=== PATIENT | female | born 1960 | race Caucasian/White ===

== ENCOUNTER 2017-08-09 12:57 | Outpatient (CLI) | payer OTHER, BC ==
--- NOTE | 2017-08-09 14:45 | XRAY Report ---
THREE VIEW BILATERAL ANKLES: 08/09/2017 CLINICAL INDICATION: Pain, swelling. FINDINGS: AP, lateral, oblique views of the bilateral ankles demonstrate no evidence of acute fracture or dislocation. No effusion is present. Mild osteoarthritis is seen. Bilateral plantar and posterior calcaneal spurring is present. IMPRESSION: MILD OSTEOARTHRITIS. NO EVIDENCE OF ACUTE FRACTURE. TD: 08/09/2017 14:45
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
== END 2017-08-09 12:58 | disposition home or self-care (01) ==
LOC: DI 12:57
PROVIDERS: ATTEND Physician Assistant
DX: S29.9XXA Unspecified injury of thorax, initial encounter (principal); M19.072 Primary osteoarthritis, left ankle and foot; M19.071 Primary osteoarthritis, right ankle and foot; M79.5 Residual foreign body in soft tissue; R60.0 Localized edema; I10 Essential (primary) hypertension
CPT/HCPCS: 93306

== ENCOUNTER 2017-09-12 08:45 | Outpatient (CLI) | payer OTHER ==
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
== END 2017-09-12 08:46 | disposition home or self-care (01) ==
LOC: DI 08:45
PROVIDERS: ATTEND Physician Assistant
DX: S22.20XS Unspecified fracture of sternum, sequela (principal)
CPT/HCPCS: 71250

== ENCOUNTER 2018-03-03 11:29 | Emergency (ER) | payer BC ==
[2018-03-03 12:53] LABS: BASOPHILS # (AUTO) 0.1 10^3/uL (0.0-0.1); BASOPHILS % (AUTO) 1.2 %; EOSINOPHILS # (AUTO) 0.5 10^3/uL (0.0-0.7); EOSINOPHILS % (AUTO) 7.3 %; HGB - HEMOGLOBIN 14.1 g/dL (12.0-16.0); LYMPHOCYTES # (AUTO) 1.7 10^3/uL (1.5-3.5); LYMPHOCYTES % (AUTO) 26.2 %; MEAN CORPUSCULAR HEMOGLOBIN 30.7 pg (27.0-31.0); MEAN CORPUSCULAR HGB CONC 33.9 g/dL (32.0-36.0); MEAN CORPUSCULAR VOLUME 90.3 fL (81.0-99.0); MEAN PLATELET VOLUME 8.2 fL (7.9-10.8); MONOCYTES # (AUTO) 0.6 10^3/uL (0.0-1.0); MONOCYTES % (AUTO) 8.5 %; NEUTROPHILS # (AUTO) 3.7 10^3/uL (1.5-6.6); NEUTROPHILS % (AUTO) 56.8 %; PLT - PLATELET COUNT 317 10^3/uL (130-450); RED BLOOD COUNT 4.61 10^6/uL (4.20-5.40); RED CELL DISTRIBUTION WIDTH 12.8 % (12.0-15.0); WHITE BLOOD COUNT 6.6 x10^3/uL (4.8-10.8)
[2018-03-03 13:07] LABS: ALBUMIN 4.6 g/dL (3.2-5.5); ALBUMIN/GLOBULIN RATIO 1.4 (1.0-2.2); BILIRUBIN,TOTAL 0.6 mg/dL (0.2-1.0); CALCIUM 9.8 mg/dL (8.5-10.3); CREATININE 0.6 mg/dL (0.4-1.0)
--- NOTE | 2018-03-03 13:08 | ED Physician Documentation ---
History of Present Illness - Stated complaint Stated Complaint: COLON PX - Chief complaint Chief Complaint: Abd Pain - Additonal information Additional information: hx from pt 57 female long standing ulcerative colitis has mesalamine and steroids at home has a GI doctor she has had her typical sx of abd ain diarrhea and some blood for 4 days has started her meds has GI apt Wed just needs a note for work because she missed several days Review of Systems Constitutional: denies: Fever, Chills GI: reports: Abdominal Pain, Diarrhea, Bloody / black stool PD PAST MEDICAL HISTORY - Past Medical History Cardiovascular: None Respiratory: Asthma, Pneumonia Endocrine/Autoimmune: Other GI: GERD, Hepatitis, Ulcerative colitis : None HEENT: Chronic vision loss, Other Psych: None Musculoskeletal: Osteoarthritis, Chronic back pain Derm: None - Past Surgical History Past Surgical History: Yes General: EGD Ortho: Knee replacement, ACL reconstruction, Other - Present Medications Home Medications: Ambulatory Orders Medication Instructions Recorded Confirmed Albuterol Sulfate [Proventil Hfa 2 puffs INH BID PRN 09/22/13 01/22/15 Inhaler] Fluticasone/Salmeterol 250/50 1 puffs INH BID PRN 11/17/14 01/14/15 [Advair 250 Mcg/50 Mcg] Niacin [Niaspan] 1,000 mg PO DAILY 11/17/14 01/22/15 Oxycodone HCl/Acetaminophen 1 tab PO Q4H PRN 11/17/14 01/22/15 [Percocet 10-325 mg Tablet] Pantoprazole [Protonix] 20 mg PO BID 11/17/14 01/22/15 Sertraline HCl [Zoloft] 100 mg PO DAILY 11/17/14 01/22/15 diazePAM [Diazepam] 10 mg PO DAILY PRN 11/17/14 01/22/15 Fish,Saf,Flx,Brg Oils/O3,6,9#2 1 cap PO DAILY 01/14/15 01/14/15 [Hxdg-Odbq-Fnzzkd Oil Softgel] Glucosamine HCl/MSM [Sm 1 tab PO DAILY 01/14/15 01/22/15 Glucosamine & MSM Tablet] - Allergies Allergies/Adverse Reactions: Allergies Allergy/AdvReac Type Severity Reaction Status Date / Time No Known Drug Allergies Allergy Verified 03/03/18 11:42 - Social History Does the pt smoke?: No Smoking Status: Never smoker Does the pt drink ETOH?: No Does the pt have substance abuse?: No - Immunizations Immunizations are current?: Yes PD ED PE NORMAL - Vitals Vital signs reviewed: Yes - Cardiac Cardiac: RRR - Respiratory Respiratory: No respiratory distress - Abdomen Abdomen: Soft, Other (mod TTP s peritoneal sx) - Derm Derm: Normal color - Neuro Neuro: Alert and oriented X 3 Results - Vitals Vitals: Vital Signs - 24 hr 03/03/18 11:40 Temperature 36.5 C Heart Rate 91 Respiratory 14 Rate Blood Pressure 121/89 H O2 Saturation 96 Oxygen O2 Source Room air - Labs Labs: Laboratory Tests 03/03/18 03/03/18 12:40 12:40 WBC 6.6 RBC 4.61 Hgb 14.1 Hct 41.6 MCV 90.3 MCH 30.7 MCHC 33.9 RDW 12.8 Plt Count 317 MPV 8.2 Neut # (Auto) 3.7 Lymph # (Auto) 1.7 [place] # (Auto) 0.6 Eos # (Auto) 0.5 Baso # (Auto) 0.1 Absolute Nucleated RBC 0.00 Nucleated RBC % 0.1 Sodium 139 Potassium 4.3 Chloride 105 Carbon Dioxide 24 Anion Gap 10.0 BUN 20 Creatinine 0.6 Estimated GFR (MDRD) 103 Glucose 105 H Calcium 9.8 Total Bilirubin 0.6 AST 27 ALT 23 Alkaline Phosphatase 59 Total Protein 8.0 Albumin 4.6 Globulin 3.4 Albumin/Globulin Ratio 1.4 Lipase 33 Departure - Departure Disposition: 01 Home, Self Care Clinical Impression: Ulcerative colitis Qualifiers: Ulcerative colitis location: other ulcerative colitis Digestive disease complication type: without complication Qualified Code(s): K51.80 - Other ulcerative colitis without complications Condition: Good Instructions: ED Colitis Ulcerative Follow-Up: Catrachita Moser PA [Primary Care Provider] - Forms: Activity restrictions
[2018-03-03 13:24] VITALS: BP 120/88
== END 2018-03-03 13:23 | disposition home or self-care (01) ==
LOC: ED 11:29
DX: K51.80 Other ulcerative colitis without complications (principal)
CPT/HCPCS: 36415; 80053; 83690; 85025; 99282; 99283

== ENCOUNTER 2018-03-08 00:39 | Outpatient (CLI) | payer BC | END 2018-03-08 00:40 | disposition home or self-care (01) | LOC: DI 00:39 | PROVIDERS: ATTEND Physician Assistant | DX: Z53.9 Procedure and treatment not carried out, unspecified reason (principal) ==

== ENCOUNTER 2018-03-22 12:42 | Outpatient (CLI) | payer BC ==
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
== END 2018-03-22 23:59 | disposition home or self-care (01) ==
LOC: DI 12:42
PROVIDERS: ATTEND Physician Assistant
DX: M79.644 Pain in right finger(s) (principal)
CPT/HCPCS: 73140

== ENCOUNTER 2018-06-13 16:46 | Outpatient (CLI) | payer BC ==
--- NOTE | 2018-06-14 13:01 | XRAY Report ---
Reason: SWELLING CONTUSED Procedure Date: 06/13/2018 Accession Number: [id number] / [id number] Procedure: XR - Elbow 3 View LT CPT Code: FULL RESULT: EXAM: LEFT ELBOW RADIOGRAPHY EXAM DATE: 06/13/2018 05:05 PM. CLINICAL HISTORY: Swelling, contused. COMPARISON: None. TECHNIQUE: 3 views. FINDINGS: Bones: Normal. No fractures or bone lesions. Joints: Normal. No effusion. No subluxation. Soft Tissues: Soft tissue swelling along the posterior elbow. IMPRESSION: No fracture or dislocation is identified. RADIA
== END 2018-06-13 16:47 | disposition home or self-care (01) ==
LOC: DI 16:46
DX: S50.02XA Contusion of left elbow, initial encounter (principal)

== ENCOUNTER 2021-01-15 15:17 | Outpatient (CLI) | payer OTHER, BC ==
--- NOTE | 2021-01-15 16:23 | Ultrasound Report ---
PROCEDURE: Ext Limited Non Vascular INDICATIONS: BURSITIS OF RIGHT ELBOW TECHNIQUE: Real-time scanning was performed of the right elbow, with image documentation. COMPARISON: None. FINDINGS: Ultrasound examination over dorsal aspect of right elbow at patient's reported area of palpable lump shows thick wall hypoechoic collection in subcutaneous soft tissue of right elbow over olecranon and measures 1.5 x 0.5 x 0.6 cm in size with increased peripheral vascularity. No internal vascularity is seen. IMPRESSION: Complex appearing fluid collection within olecranon bursa with surrounding soft tissue e jason and peripheral hypervascularity consistent with clinical diagnosis of olecranon bursitis. Reviewed by: Leroy Houston MD on 01/15/2021 4:21 PM PDT Approved by: Leroy Houston MD on 01/15/2021 4:21 PM PDT Station ID: [id number]
== END 2021-01-15 15:18 | disposition home or self-care (01) ==
LOC: DI 15:17
PROVIDERS: ATTEND Nurse Practitioner Family
DX: M70.21 Olecranon bursitis, right elbow (principal)

== ENCOUNTER 2021-05-01 11:13 | Outpatient (CLI) | payer OTHER, BC ==
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
== END 2021-05-01 11:14 | disposition home or self-care (01) ==
LOC: DI.S 11:13
PROVIDERS: ATTEND Nurse Practitioner Family
DX: U07.1 COVID-19 (principal)

== ENCOUNTER 2022-05-10 14:18 | Outpatient (CLI) | payer OTHER ==
--- NOTE | 2022-05-11 11:56 | Mammography Report ---
BILATERAL DIGITAL SCREENING MAMMOGRAM 3D/2D: 05/10/2022 CLINICAL: Routine screening. Comparison is made to exams dated: 11/12/2013 mammogram and 03/07/2016 mammogram - [facility]. Both breasts are almost entirely fatty (category a/<25% glandular tissue). No significant masses, calcifications, or other findings are seen in either breast. There has been no significant interval change. IMPRESSION: NEGATIVE There is no mammographic evidence of malignancy. A 1 year screening mammogram is recommended. Based on the Tyrer Cuzick model (a risk assessment model) the patients lifetime risk is 3.0% and her 10 year risk is 1.2%. According to the ACR, ACS, and NCCN guidelines, an annual breast MRI exam fredrick g with mammogram is recommended if the patients lifetime risk is 20% or greater. This exam was interpreted at Station ID: [id number]. NOTE: For mammograms, a report in lay terms will be sent to the patient. Approximately 15% of breast malignancies will not be visualized mammographically. In the management of a palpable breast mass, a negative mammogram must not discourage biopsy of a clinically suspicious lesion. Electronically Signed By: Jimmy Beck M.D. aty/penrad:05/11/2022 08:46:14 ACR BI-RADS Category 1: Negative 3341F PARENCHYMAL PATTERN: (F) - The breast(s) demonstrate(s) diffuse fatty replacement. BI-RADS CATEGORY: (1) - 1 RECOMMENDATION: (ANNUAL) - Recommend routine annual screening mammography. [id number] 1 year screening LATERALITY: (B)
== END 2022-05-10 14:19 | disposition home or self-care (01) ==
LOC: DI.S 14:18
PROVIDERS: ATTEND Nurse Practitioner Family
DX: Z12.31 Encounter for screening mammogram for malignant neoplasm of breast (principal)